=== PATIENT | female | born 1970 | race Caucasian/White ===

== ENCOUNTER 2023-11-30 09:53 | Emergency (ER) | payer BC, SELFPAY ==
--- NOTE | ~2023-11-30 | XR_ITS ---
Examination: AP pelvis and right hip. Chest and right RIBS. CLINICAL INDICATION: Fall. Hip pain and right rib pain. COMPARISON: None. TECHNIQUE: Chest and right RIBS 4 views. AP pelvis and right hip 3 views. FINDINGS: AP pelvis: There is normal symmetry of bilateral hip joints and SI joints. No visible acute fracture, dislocation or subluxation seen there are phleboliths in the pelvis. AP and frog-leg views right hip reveal maintained joint space. No fracture or bony erosive changes. No soft tissue calcification. Chest and right RIBS: The lungs are well-expanded and clear. Heart size and pulmonary vascularity is normal. There are bilateral augmented breasts. Multiple views of right ribs reveal nondisplaced fracture lateral eighth and ninth ribs. No bony abnormality seen. The soft tissues are normal. XR/XR hip RT w PEL1V IMPRESSION: Unremarkable AP pelvis and right hip exam. Unremarkable chest. There is nondisplaced fracture lateral eighth and ninth ribs
--- NOTE | ~2023-11-30 | XR_ITS ---
Examination: AP pelvis and right hip. Chest and right RIBS. CLINICAL INDICATION: Fall. Hip pain and right rib pain. COMPARISON: None. TECHNIQUE: Chest and right RIBS 4 views. AP pelvis and right hip 3 views. FINDINGS: AP pelvis: There is normal symmetry of bilateral hip joints and SI joints. No visible acute fracture, dislocation or subluxation seen there are phleboliths in the pelvis. AP and frog-leg views right hip reveal maintained joint space. No fracture or bony erosive changes. No soft tissue calcification. Chest and right RIBS: The lungs are well-expanded and clear. Heart size and pulmonary vascularity is normal. There are bilateral augmented breasts. Multiple views of right ribs reveal nondisplaced fracture lateral eighth and ninth ribs. No bony abnormality seen. The soft tissues are normal. XR/XR ribs RT min 3V w CXR1V IMPRESSION: Unremarkable AP pelvis and right hip exam. Unremarkable chest. There is nondisplaced fracture lateral eighth and ninth ribs
--- NOTE | ~2023-11-30 | XR_ITS ---
EXAMINATION: XR RIBS, RIGHT CLINICAL INFORMATION: Chest and right RIBS: COMPARISON: None available. TECHNIQUE: Chest PA 1 view. 3 views of the right ribs were obtained. FINDINGS: Lungs are clear. No consolidation, pneumothorax, or pleural effusion. The cardiomediastinal silhouette and pulmonary vasculature are normal. Osseous structures are unremarkable. There is a minimally displaced right lateral eighth and ninth rib fractures. No additional fracture seen. XR/XR ribs RT min 3V w CXR1V IMPRESSION: Nondisplaced right lateral eighth rib fracture. Again visualized is a nondisplaced right lateral eighth and ninth rib fractures which are stable.
[2023-11-30 09:59] VITALS: BP 152/83; PULSE 100; RESP 19; TEMP 36.6; O2SAT 99; BMI 25.5
[2023-11-30 12:03] VITALS: BP 140/79; PULSE 84; RESP 18; TEMP 36.8; O2SAT 99
--- NOTE | 2023-11-30 12:18 | ED.FALL ---
HPI - Fall General Chief Complaint: Fall Stated Complaint: Fall R rib pain Time Seen by Provider: 11/30/23 11:57 Source: patient and RN notes reviewed Mode of arrival: ambulatory Limitations: no limitations History of Present Illness HPI Narrative: This is a 53-year-old female, with no known medical problems, presenting to the emergency department complaints of right hip pain and right rib pain after slip and fall down flight of stairs which occurred last night. Patient states that she accidentally slipped down her steps and fell on her right side. She denies hitting her head or loss of consciousness. She denies any dizziness, blurred vision, lightheadedness, chest pain, shortness breast, abdominal pain, nausea, vomiting or diarrhea. She reports right leg pain, left knee pain as well as right rib pain. She denies taking any medications prior to her arrival. Denies any fevers, chills. Denies history rib fractures in the past. Denies any neck pain. She has not on blood thinners. No other complaints or concerns at this time. MD complaint: fall Onset (ago): day(s) Fall witnessed: no Place fall occurred: home Loss of consciousness: none Prolonged down time: no Symptoms prior to fall: none Location of injury - extremities: left: knee and right: thigh Severity: moderate Quality: sharp Associated symptoms (after fall): denies Related Data Previous Rx's Medication Instructions Recorded acetaminophen 650 mg 650 mg PO Q8H PRN pain #30 tabs 11/30/23 tablet,extended release (Tylenol Arthritis Pain) ibuprofen 600 mg tablet 600 mg PO Q6H PRN pain #30 tabs 11/30/23 oxycodone-acetaminophen 5 mg-325 1 tab PO Q6H PRN pain #5 tabs 11/30/23 mg tablet (Percocet) Allergies Allergy/AdvReac Type Severity Reaction Status Date / Time No Known Allergies Allergy Verified 11/30/23 09:59 [No Known Allergies*] Review of Systems Review of Systems: Yes all other systems are reviewed and are negative Constitutional: Constitutional: Reports as per [facility] Social History Social History Advance Directives: No Advance Directives Information Provided: No Physical Exam Vital Signs: Vital Signs: Last Vital Signs Temp 98.2 F 11/30/23 12:03 Pulse 84 11/30/23 12:03 Resp 18 11/30/23 12:03 BP 140/79 H 11/30/23 12:03 Pulse Ox 99 11/30/23 12:03 O2 Del Method Room Air 11/30/23 12:03 BMI result Body Mass Index 25.5 Const: General: cooperative, comfortable and no acute distress Orientation/consciousness: patient oriented x3 Limitations: no limitations HEENT: Head: Yes normal to inspection, Yes normocephalic, Yes atraumatic, No Patterson's sign, No occipital foramen tenderness and No palpable skull fracture Ears: hearing grossly normal bilaterally and TM's normal bilaterally General nose exam: Normal external nose present Face and sinus: Yes normal facial exam Mouth: Normal oral and palatal mucosa present, oropharynx normal and moist mucous membranes Throat: Yes posterior oropharynx normal Eyes: General: appearance normal, both eyes and all related structures Eyelids: Yes eyelids normal Conjunctivae: conjunctivae normal Sclerae: sclerae normal Pupils: Equal, round and reactive pupils present EOM: EOMs intact bilaterally Neck: Other: No midline spine tenderness palpation Neck: Yes normal visual inspection, Yes full ROM and Yes no lymphadenopathy Lymphatic: no lymphadenopathy noted Chest: Chest palpation & inspection: normal inspection of the chest Resp: Effort & Inspection: normal respiratory effort and able to speak in complete sentences Auscultation: clear to auscultation bilaterally, no crackles, no rales, no rhonchi and no wheezes Cardio: Rate: regular rate Rhythm: regular rhythm Heart sounds: S1 normal heart sound present and S2 normal heart sound present GI: Other: Abdomen is soft, nontender ecchymosis seen. Inspection: Yes normal to inspection Back/Spine/Pelvis: Other: Right sided rib tenderness to palpation. Crepitus noted. Skin: General skin exam: no rashes or lesions noted Trauma: no lacerations or abrasions Wounds: no wounds Neuro: General: patient oriented x3 and moves all extremities Cranial nerves: Yes Equal, round and reactive pupils present Extrem: Other: Right lateral thigh with tenderness palpation with 4 cm x 4 cm hematoma noted, no bony tenderness along the femur, patient is ambulatory. Left knee with ecchymosis noted at the medial joint line, full range of motion, no patellar tenderness, full range of motion, distal sensation circulation intact. General: Yes normal to inspection Right upper extremity: normal to inspection Left upper extremity: normal to inspection Right lower extremity: normal to inspection Left lower extremity: normal to inspection Medications Administered Discontinued Medications Generic Name Dose Route Start Last Admin Trade Name Arnie PRN Reason Stop Dose Admin Acetaminophen 975 mg 11/30/23 12:32 11/30/23 12:43 Acetaminophen 325 Mg Tablet PO 11/30/23 12:33 975 mg ONCE ONE Administration Medical Decision Making Medical Decision Making [facility] Narrative: This is a 53-year-old female presenting to the emergency department with complaints of right-sided rib pain status post mechanical fall which occurred last night. On arrival, patient mildly hypertensive at 152/83. Lungs are clear to auscultation bilaterally. Patient has exquisite tenderness to palpation along the right ribs. During my examination crepitus was heard even to light palpation. She already had the x-ray which was read as 8th and 9th rib fracture. However given finding on physical exam, repeat x-ray was obtained to ensure that this still remains to be nondisplaced. Discussed findings with patient as well as at bedside. Given incentive spirometer. Will treat with anti-inflammatories, and pain medication. Advised follow-up with PCP. Given return precautions. She had no head strike or LOC. She has no cervical midline spine tenderness, no headaches, dizziness, or lightheadedness. She is neurologically intact. Abdomen is soft nontender. She does have hematoma noted to the right lateral thigh, as well as ecchymosis noted to the left knee without any bony tenderness. Full range of motion of the left knee. No other complaints or concerns at this time. Differential Diagnosis Differential Diagnoses: The differential diagnosis associated with the presentation includes Rib fracture, contusion, pneumonia, pneumothorax, hematoma, fracture Radiology Impression Discussion of test interpretation with radiology: I have reviewed the radiologist's reading. Radiologist Impression: EXAMINATION: XR RIBS, RIGHT CLINICAL INFORMATION: Chest and right RIBS: COMPARISON: None available. TECHNIQUE: Chest PA 1 view. 3 views of the right ribs were obtained. FINDINGS: Lungs are clear. No consolidation, pneumothorax, or pleural effusion. The cardiomediastinal silhouette and pulmonary vasculature are normal. Osseous structures are unremarkable. There is a minimally displaced right lateral eighth and ninth rib fractures. No additional fracture seen. XR/XR ribs RT min 3V w CXR1V IMPRESSION: Nondisplaced right lateral eighth rib fracture. Again visualized is a nondisplaced right lateral eighth and ninth rib fractures which are stable. Dictated By: Danie Kurtz MD CLINICAL INDICATION: Fall. Hip pain and right rib pain. COMPARISON: None. TECHNIQUE: Chest and right RIBS 4 views. AP pelvis and right hip 3 views. FINDINGS: AP pelvis: There is normal symmetry of bilateral hip joints and SI joints. No visible acute fracture, dislocation or subluxation seen there are phleboliths in the pelvis. AP and frog-leg views right hip reveal maintained joint space. No fracture or bony erosive changes. No soft tissue calcification. Chest and right RIBS: The lungs are well-expanded and clear. Heart size and pulmonary vascularity is normal. There are bilateral augmented breasts. Multiple views of right ribs reveal nondisplaced fracture lateral eighth and ninth ribs. No bony abnormality seen. The soft tissues are normal. XR/XR ribs RT min 3V w CXR1V IMPRESSION: Unremarkable AP pelvis and right hip exam. Unremarkable chest. There is nondisplaced fracture lateral eighth and ninth ribs Dictated By: Danie Kurtz MD Examination: AP pelvis and right hip. Chest and right RIBS. CLINICAL INDICATION: Fall. Hip pain and right rib pain. COMPARISON: None. TECHNIQUE: Chest and right RIBS 4 views. AP pelvis and right hip 3 views. FINDINGS: AP pelvis: There is normal symmetry of bilateral hip joints and SI joints. No visible acute fracture, dislocation or subluxation seen there are phleboliths in the pelvis. AP and frog-leg views right hip reveal maintained joint space. No fracture or bony erosive changes. No soft tissue calcification. Chest and right RIBS: The lungs are well-expanded and clear. Heart size and pulmonary vascularity is normal. There are bilateral augmented breasts. Multiple views of right ribs reveal nondisplaced fracture lateral eighth and ninth ribs. No bony abnormality seen. The soft tissues are normal. XR/XR hip RT w PEL1V IMPRESSION: Unremarkable AP pelvis and right hip exam. Unremarkable chest. There is nondisplaced fracture lateral eighth and ninth ribs Dictated By: Danie Kurtz MD Independent Historian Clinical information obtained from an independent historian. History obtained from or confirmed by: Spouse Discharge Plan Discharge Clinical Impression: Fracture of rib, Contusion of right thigh, Left knee sprain Patient Disposition: Home, Self-Care Instructions: Rib Fracture (ED) Additional Instructions: You seen in the emergency department after a slip and fall. You have two fractured ribs. Please use incentive spirometer multiple times per day. This will prevent pneumonia. Please alternate between ibuprofen and Tylenol as needed for pain. I am prescribing you a stronger pain medication, cassette, this is a narcotic pain medication, this can cause drowsiness, do not drink alcohol or drive while taking this medication. Please be advised that this is an addictive medication and should only be used for severe pain only. Use Yasir wraps around your knee as well as your leg to help reduce swelling and pain. If you develop any new or worsening symptoms occur, including but not limited to chest pain, shortness for breath, abdominal pain, nausea, vomiting or diarrhea, or headaches, dizziness, blurred vision, please return for re-evaluation. Prescriptions: New ibuprofen 600 mg tablet 600 mg PO Q6H PRN (Reason: pain) Qty: 30 0RF acetaminophen [Tylenol Arthritis Pain] 650 mg tablet extended release 650 mg PO Q8H PRN (Reason: pain) Qty: 30 0RF oxycodone-acetaminophen [Percocet] 5-325 mg tablet 1 tab PO Q6H PRN (Reason: pain) Qty: 5 0RF Rx Instructions: Partial Fill upon patient request. Interventions: ED Discharge Assessment Last Done: 11/30/23 15:27 Discharge Date/Time: 11/30/23 15:27
[2023-11-30] MEDS: Acetaminophen 325 MG TABLET 975 MG PO (12:43)
== END 2023-11-30 15:27 | disposition home or self-care (01) ==
PROVIDERS: Emergency Provider Student in an Organized Health Care Education/Training Program; PCP Internal Medicine
DX: S22.41XA Multiple fractures of ribs, right side, initial encounter for closed fracture (principal); S83.92XA Sprain of unspecified site of left knee, initial encounter; S80.11XA Contusion of right lower leg, initial encounter; R07.89 Other chest pain; I16.0 Hypertensive urgency; M25.551 Pain in right hip; R07.81 Pleurodynia; M79.605 Pain in left leg; M79.604 Pain in right leg; W10.9XXA Fall (on) (from) unspecified stairs and steps, initial encounter; Y93.9 Activity, unspecified; Y92.9 Unspecified place or not applicable; Y99.8 Other external cause status
CPT/HCPCS: 71101; 73502; 94010; 99283